=== PATIENT | male | born 1960 | race Caucasian/White ===

== ENCOUNTER 2019-09-15 13:07 | Emergency (ER) | payer SELFPAY ==
[~2019-09-15] VITALS: Ht 182.9 cm; Wt 270.0 kg
[2019-09-15] MEDS ORDERED: OXYcodone/APAP 10/325MG TABLET PO ONE (14:00)
[2019-09-15] MEDS ORDERED: DIAZEPAM 5 MG TABLET PO ONE (14:00)
[2019-09-15] MEDS ORDERED: KETOROLAC 30 MG/1 ML IVPush ONE (14:00)
[2019-09-15] MEDS ORDERED: KETOROLAC 30 MG/1 ML ONE (14:08)
[2019-09-15] MEDS ORDERED: OXYcodone/APAP 10/325MG TABLET ONE (14:08)
[2019-09-15] MEDS ORDERED: DIAZEPAM 5 MG TABLET ONE (14:08)
[2019-09-15] MEDS ORDERED: ONDANSETRON 2MG/ML, 2ML IVPush ONE (14:30)
[2019-09-15] MEDS ORDERED: MORPHINE SULFATE 4 MG/ML, 1ML IVPush ONE (14:30)
--- NOTE | 2019-09-15 14:32 | NUR ---
TASK RN: PT RESTING ON [facility]. MEDICATIONS ADMINISTERED PER ORDER FROM CALEB RUSSELL. NO OTHER NEEDS REQUESTED AT THIS TIME.
[2019-09-15] MEDS ORDERED: MORPHINE SULFATE 4 MG/ML, 1ML ONE (14:50)
[2019-09-15] MEDS ORDERED: ONDANSETRON 2MG/ML, 2ML ONE (14:50)
--- NOTE | 2019-09-15 14:56 | NUR ---
TASK RN: MEDICATIONS ADMINISTERED PER ORDER.
--- NOTE | 2019-09-15 14:59 | NUR ---
TASK RN: BEDSIDE REPORT TO CALEB RUSSELL.
[2019-09-15] MEDS ORDERED: ZIPRASIDONE 20 MG INJ IM ONE ×2 (15:57→16:00)
--- NOTE | 2019-09-15 16:11 | NUR ---
ATTEMPTED AMBULATION PT REPORTS TOO PAINFULL ERP AWARE MEDS GIVEN PER ORDERS
[2019-09-15] MEDS ORDERED: LABETALOL 5MG/ML, 20ML ONE (16:47)
--- NOTE | 2019-09-15 16:54 | NUR ---
BP HAS DROPPED HOLDING MEDS PER ERP
[2019-09-15] MEDS ORDERED: LABETALOL 5MG/ML, 20ML IVPush ONE (17:00)
--- NOTE | 2019-09-15 17:27 | NUR ---
PT REPORTS HE STILL IS UNABLE TO WALK ERP AWARE
[2019-09-15 18:15] VITALS: BP 127/98
== END 2019-09-15 18:47 | disposition home or self-care (01) ==
LOC: ED 16:23
DX: S39.012A Strain of muscle, fascia and tendon of lower back, initial encounter (principal); I10 Essential (primary) hypertension; F15.20 Other stimulant dependence, uncomplicated; F17.200 Nicotine dependence, unspecified, uncomplicated; X58.XXXA Exposure to other specified factors, initial encounter; Y93.89 Activity, other specified; Y92.89 Other specified places as the place of occurrence of the external cause; Y99.8 Other external cause status
CPT/HCPCS: 93005; 96372; 96374; 96375; 99285; J1885; J2270; J2405; J3486

== ENCOUNTER 2019-09-25 12:38 | Emergency (ER) | payer OTHER ==
[~2019-09-25] VITALS: Ht 182.9 cm; Wt 120.0 kg
--- NOTE | 2019-09-25 13:15 | NUR ---
PT AMBULATORY TO RME FROM TRIAGE WITH STEADY GAIT, NAD NOTED. RESP REGULAR AND UNLABORED. NEURO AND CMS INTACT. SONDRA LEOS AT BEDSIDE FOR EVALUATION, CALL LIGHT IN REACH. FALL PRECAUTIONS IN PLACE. 59 Y/O M REPORTS "LOW BACK PAIN GOES DOWN MY LEG, STARTED AFTER I HELPED SOMEONE LIFT A 3-WATKINS IN A TRUCK." A&OX4.
[2019-09-25] MEDS ORDERED: UNK BP MED PO (13:25)
[2019-09-25] MEDS ORDERED: KETOROLAC 30 MG/1 ML IM ONE (13:30)
[2019-09-25] MEDS ORDERED: CYCLOBENZAPRINE 10 MG TABLET PO ONE (13:30)
[2019-09-25] MEDS ORDERED: HYDROcodone/APAP 5/325 TABLET PO ONE (13:30)
[2019-09-25] MEDS ORDERED: ONDANSETRON ODT 8 MG PO ONE (13:30)
[2019-09-25] MEDS ORDERED: HYDROcodone/APAP 5/325 TABLET ONE (13:39)
[2019-09-25] MEDS ORDERED: CYCLOBENZAPRINE 10 MG TABLET ONE (13:39)
[2019-09-25] MEDS ORDERED: KETOROLAC 30 MG/1 ML ONE (13:39)
[2019-09-25] MEDS ORDERED: ONDANSETRON ODT 4 MG ONE (13:40)
[2019-09-25] MEDS ORDERED: ONDANSETRON ODT 8 MG ONE (13:42)
--- NOTE | 2019-09-25 13:50 | NUR ---
PT MEDICATED NOTED PER ORDER FOR 7/10 LOW BACK PAIN.
--- NOTE | 2019-09-25 14:20 | NUR ---
PT REPORTS PAIN IMPROVED, "WOW SO MUCH BETTER." RATES PAIN "MAYBE 2/10." PT UP FOR RECHECK
--- NOTE | 2019-09-25 14:42 | NUR ---
SONDRA LEOS AT BEDSIDE FOR RECHECK
[2019-09-25 14:55] VITALS: BP 132/88
== END 2019-09-25 14:58 | disposition home or self-care (01) ==
LOC: ED 14:52
DX: M54.42 Lumbago with sciatica, left side (principal); I10 Essential (primary) hypertension; F17.200 Nicotine dependence, unspecified, uncomplicated
CPT/HCPCS: 72110; 96372; 99284; J1885; Q0162

== ENCOUNTER 2020-05-10 11:12 | Inpatient (IN) | payer MEDICAID ==
[~2020-05-10] VITALS: Ht 182.9 cm; Wt 116.1 kg
[~2020-05-10 11:12] MED LIST: UNK BP MED PO
--- NOTE | 2020-05-10 11:22 | NUR ---
EKG IN TRIAGE
[2020-05-10] MEDS ORDERED: ASPIRIN 81 MG TABLET CHEW ONE (11:54)
[2020-05-10] MEDS ORDERED: METOPROLOL 1 MG/ML, 5ML ONE ×2 (11:54→13:03)
[2020-05-10] MEDS ORDERED: SODIUM CHLORIDE FLUSH 10ML SYR IVF ONE (12:00)
[2020-05-10] MEDS: METOPROLOL 1 MG/ML, 5ML IVPush PRN ×3 (12:00→13:13)
[2020-05-10] MEDS ORDERED: ASPIRIN 81 MG TABLET CHEW PO ONE ×2 (12:00→14:00)
[2020-05-10 12:22] LABS: BASOPHILS % (AUTO) 1 % (0-1); EOSINOPHILS % (AUTO) 2 % (1-7); LYMPHOCYTES % (AUTO) 16 % (22-44); MEAN CORPUSCULAR HEMOGLOBIN 32.6 pg (27.5-34.5); MEAN CORPUSCULAR HGB CONC 33.5 g/dL (33.2-36.2); MEAN PLATELET VOLUME 8.7 fL (7.4-10.4); MONOCYTES % (AUTO) 9 % (2-9); NEUTROPHILS % (AUTO) 73 % (42-75); PLATELET COUNT 273 x10^3/uL (130-400); RED CELL DISTRIBUTION WIDTH 16.1 % (9.4-14.8)
[2020-05-10 12:23] LABS: ALANINE AMINOTRANSFERASE 58 U/L (12-78); ALBUMIN 3.8 g/dL (3.4-5.0); ANION GAP 10 mmol/L (5-15); CHLORIDE 108 mmol/L (98-107); CREATININE 1.26 mg/dL (0.7-1.3)
[2020-05-10 12:26] LABS: MD NO
[2020-05-10 12:27] LABS: ALKALINE PHOSPHATASE 118 U/L (45-117); TOTAL PROTEIN 7.9 g/dL (6.4-8.2); TROPONIN I 0.082 ng/mL (0.000-0.045)
[2020-05-10] MEDS ORDERED: LABETALOL 5MG/ML, 20ML IVPush ONE (13:30)
[2020-05-10] MEDS ORDERED: MELATONIN 5 MG TABLET PO PRN (14:00)
[2020-05-10] MEDS ORDERED: DIPHENHYDRAMINE 25 MG CAPSULE PO PRN (14:00)
[2020-05-10] MEDS ORDERED: NITROGLYCERIN SINGLE TAB 0.4 MG SL PRN (14:00)
[2020-05-10] MEDS ORDERED: NITROGLYCERIN 0.4 MG BOTTLE (25 TABS) SL PRN (14:00)
[2020-05-10] MEDS ORDERED: DOCUSATE 100 MG CAPSULE PO PRN (14:00)
[2020-05-10] MEDS ORDERED: ASPIRIN 325 MG TABLET EC PO ONE (14:00)
[2020-05-10] MEDS ORDERED: ONDANSETRON ODT 4 MG PO PRN (14:00)
[2020-05-10] MEDS ORDERED: LABETALOL 5MG/ML, 20ML IVPush PRN (14:00)
[2020-05-10] MEDS ORDERED: LABETALOL 20 MG/4 ML IVPush ONE (14:00)
[2020-05-10] MEDS ORDERED: ONDANSETRON 2MG/ML, 2ML IVPush PRN (14:00)
[2020-05-10 14:38] LABS: CHOLESTEROL, TOTAL 293 mg/dL (140-239); TRIGLYCERIDES 674 mg/dL (50-200)
[2020-05-10 14:41] LABS: CHOL/HDL RATIO 4.8; HDL CHOL % 21 % (26-37); HDL CHOLESTEROL (DIRECT) 61 mg/dL (40-60); TROPONIN I 0.081 ng/mL (0.000-0.045)
[2020-05-10 14:45] VITALS: BP 172/131
[2020-05-10] MEDS: ENALAPRILAT 1.25 MG/ML, 2ML IVPush PRN (15:00)
[2020-05-10] MEDS ORDERED: ENALAPRILAT 1.25 MG/ML, 1ML ONE (15:06)
[2020-05-10] MEDS ORDERED: MIDAZOLAM 1 MG/ML, 5ML ONE (16:18)
[2020-05-10] MEDS ORDERED: BIVALIRUDIN 250 MG ONE ×2 (16:19→16:48)
[2020-05-10] MEDS ORDERED: HEPARIN 1,000 UNITS/ML, 10ML ONE (16:19)
[2020-05-10] MEDS ORDERED: LIDOCAINE-MPF 1%, 5ML ONE (16:19)
[2020-05-10] MEDS ORDERED: VERAPAMIL 2.5 MG/ML, 2ML ONE (16:19)
[2020-05-10] MEDS ORDERED: FENTANYL PF 100 MCG/2ML ONE (16:19)
[2020-05-10] MEDS ORDERED: TICAGRELOR 90 MG TABLET ONE (16:19)
[2020-05-10] MEDS ORDERED: NITROGLYCERIN 30 MCG/ML, 20ML VIAL ONE (16:47)
[2020-05-10] MEDS ORDERED: LISINOPRIL 5 MG TABLET ONE (17:46)
[2020-05-10] MEDS: ENOXAPARIN 40 MG/0.4 ML SQ SCH (17:54)
[2020-05-10] MEDS ORDERED: SODIUM CHLORIDE 0.9% 1,000 ML IV SCH (18:00)
[2020-05-10 18:31] LABS: TROPONIN I 0.081 ng/mL (0.000-0.045)
[2020-05-10] MEDS: ACETAMINOPHEN 325 MG TABLET PO PRN (18:44)
[2020-05-10 19:33] LABS: MICROSCOPIC NOT IND
[2020-05-10 19:45] LABS: AMPHETAMINE SCREEN, URINE Negative (Negative); BARBITURATE SCREEN, URINE Negative (Negative); BENZODIAZEPINE SCREEN, URINE Positive (Negative); CANNABINOID SCREEN, URINE Positive (Negative); COCAINE SCREEN, URINE Negative (Negative); METHADONE SCREEN, URINE Negative (Negative); OPIATE SCREEN, URINE Negative (Negative)
[2020-05-10 20:26] VITALS: BP 151/91
[2020-05-10] MEDS: SODIUM CHLORIDE FLUSH 10ML SYR IVF SCH (20:28)
[2020-05-10] MEDS: LISINOPRIL 5 MG TABLET PO SCH (20:28)
[2020-05-10] MEDS ORDERED: ATORVASTATIN 40 MG TABLET PO SCH (21:00)
[2020-05-10 21:55] LABS: TROPONIN I 0.075 ng/mL (0.000-0.045)
[2020-05-11] VITALS (7 sets, daily range): BP systolic 127–180; BP diastolic 79–111
[2020-05-11 02:17] LABS: ALBUMIN 3.3 g/dL (3.4-5.0); ANION GAP 6 mmol/L (5-15); CALCIUM 8.6 mg/dL (8.5-10.1); CHLORIDE 108 mmol/L (98-107)
[2020-05-11 02:21] LABS: ALANINE AMINOTRANSFERASE 54 U/L (12-78); ALKALINE PHOSPHATASE 103 U/L (45-117); CREATININE 1.05 mg/dL (0.7-1.3); TOTAL PROTEIN 7.2 g/dL (6.4-8.2)
[2020-05-11 02:32] LABS: TROPONIN I 0.115 ng/mL (0.000-0.045)
[2020-05-11] MEDS: ACETAMINOPHEN 325 MG TABLET PO PRN ×2 (05:29→09:39)
[2020-05-11] MEDS ORDERED: ASPIRIN 325 MG TABLET EC PO SCH (06:00)
[2020-05-11] MEDS ORDERED: METOPROLOL SUCCINATE 25 MG TAB.ER.24H PO SCH (06:00)
[2020-05-11] MEDS: LISINOPRIL 5 MG TABLET PO SCH (08:43)
[2020-05-11] MEDS: SODIUM CHLORIDE FLUSH 10ML SYR IVF SCH (08:44)
[2020-05-11] MEDS ORDERED: AMLODIPINE 2.5 MG TABLET PO SCH (09:00)
[2020-05-11] MEDS ORDERED: ENALAPRILAT 1.25 MG/ML, 1ML ONE ×2 (09:36→10:26)
[2020-05-11] MEDS: ENALAPRILAT 1.25 MG/ML, 2ML IVPush PRN (09:40)
[2020-05-11] MEDS ORDERED: FENOFIBRATE 145 MG TABLET PO SCH (10:30)
[2020-05-11] MEDS ORDERED: AMLO2.5T5 PO (12:39)
[2020-05-11] MEDS ORDERED: FENO145T19 PO (12:39)
[2020-05-11] MEDS ORDERED: METO25TA91 PO (12:39)
[2020-05-11] MEDS ORDERED: ATOR40TA78 PO (12:39)
[2020-05-11] MEDS ORDERED: LISI5TAB7 PO (12:39)
[2020-05-11] MEDS ORDERED: ASPI81TA45 PO (12:41)
[2020-05-11] MEDS: ENOXAPARIN 40 MG/0.4 ML SQ SCH (14:00)
== END 2020-05-11 15:50 | disposition home or self-care (01) | DRG 191 ==
LOC: ED 11:37 → 5SO 13:03 → DCLOUNGE 05-11 15:35
PROVIDERS: ADMIT Family Medicine; ATTEND Family Medicine
PROC: 4A023N7 Measurement of Cardiac Sampling and Pressure, Left Heart, Percutaneous Approach (ICD-10-PCS; principal; 2020-05-10)
PROC: B2111ZZ Fluoroscopy of Multiple Coronary Arteries using Low Osmolar Contrast (ICD-10-PCS; 2020-05-10)
PROC: B2151ZZ Fluoroscopy of Left Heart using Low Osmolar Contrast (ICD-10-PCS; 2020-05-10)
DX: I25.110 Atherosclerotic heart disease of native coronary artery with unstable angina pectoris (principal); E78.1 Pure hyperglyceridemia; E78.5 Hyperlipidemia, unspecified; F12.90 Cannabis use, unspecified, uncomplicated; F15.11 Other stimulant abuse, in remission; I10 Essential (primary) hypertension; I16.1 Hypertensive emergency; I70.0 Atherosclerosis of aorta; N17.9 Acute kidney failure, unspecified; Z79.899 Other long term (current) drug therapy; Z80.9 Family history of malignant neoplasm, unspecified; Z87.891 Personal history of nicotine dependence; Z88.0 Allergy status to penicillin; E66.01 Morbid (severe) obesity due to excess calories; Z68.34 Body mass index [BMI] 34.0-34.9, adult
CPT/HCPCS: 36415; 71045; 80053; 80061; 80307; 81003; 83735; 84484; 85025; 85379; 93005; 93306; 96374; 96375; 96376; 99291; G0378; J0583; J1644; J1650; J2250; J3010

== ENCOUNTER 2020-09-06 14:54 | Emergency (ER) | payer MEDICAID ==
[~2020-09-06] VITALS: Ht 180.3 cm; Wt 118.8 kg
[~2020-09-06 14:54] MED LIST changes: +AMLO2.5T5 PO; +ASPI81TA45 PO; +ATOR40TA78 PO; +FENO145T19 PO; +LISI5TAB7 PO; +METO25TA91 PO
[2020-09-06 14:59] VITALS: BP 144/91
[2020-09-06] MEDS ORDERED: BACITRACIN ZINC OINT 500U/GM, 0.9 GM ONE (15:22)
--- NOTE | 2020-09-06 15:32 | NUR ---
REGISTERED HEALTH NURSE: PT AMBULATORY TO ROOM FROM LOBBY WITH STEADY GAIT AT THIS TIME WITH [employer].
== END 2020-09-06 16:26 | disposition home or self-care (01) ==
LOC: ED 16:16
DX: K08.89 Other specified disorders of teeth and supporting structures (principal)
CPT/HCPCS: 99281

== ENCOUNTER 2020-09-21 09:44 | Emergency (ER) | payer MEDICAID ==
[~2020-09-21] VITALS: Ht 180.3 cm; Wt 117.1 kg
--- NOTE | 2020-09-21 10:29 | NUR ---
PT HAS CO ABDOMINAL PAIN THROUGHOUT AND DARK STOOL. DENIES EMESIS W BLOOD. HX OF HEMMORHOIDS BUT STATES THIS BLOOD IS DARK. HX OF HERNIA. PA AT BEDSIDE FOR RECTAL EXAM
[2020-09-21] MEDS ORDERED: MORPHINE SULFATE 4 MG/ML, 1ML ONE (10:55)
[2020-09-21] MEDS ORDERED: ONDANSETRON 2MG/ML, 2ML ONE (10:55)
[2020-09-21] MEDS ORDERED: MORPHINE SULFATE 4 MG/ML, 1ML IVPush PRN (11:00)
[2020-09-21] MEDS ORDERED: SODIUM CHLORIDE FLUSH 10ML SYR IVF ONE (11:00)
[2020-09-21] MEDS ORDERED: ONDANSETRON 2MG/ML, 2ML IVPush ONE (11:00)
[2020-09-21] MEDS ORDERED: SODIUM CHLORIDE 0.9% 1,000ML IVBOLUS ONE (11:00)
[2020-09-21 11:10] LABS: CHLORIDE 108 mmol/L (98-107)
[2020-09-21 11:11] LABS: BASOPHILS % (AUTO) 1 % (0-1); EOSINOPHILS % (AUTO) 0 % (1-7); LYMPHOCYTES % (AUTO) 8 % (22-44); MEAN CORPUSCULAR HEMOGLOBIN 32.9 pg (27.5-34.5); MEAN CORPUSCULAR HGB CONC 34.2 g/dL (33.2-36.2); MEAN PLATELET VOLUME 8.4 fL (7.4-10.4); MONOCYTES % (AUTO) 5 % (2-9); NEUTROPHILS % (AUTO) 86 % (42-75); PLATELET COUNT 341 x10^3/uL (130-400); RED BLOOD COUNT 4.77 x10^6/uL (4.38-5.82); RED CELL DISTRIBUTION WIDTH 13.1 % (9.4-14.8)
[2020-09-21 11:15] LABS: ALANINE AMINOTRANSFERASE 34 U/L (12-78); ALKALINE PHOSPHATASE 66 U/L (45-117); ANION GAP 5 mmol/L (5-15); BILIRUBIN,TOTAL 0.5 mg/dL (0.2-1.0); CALCIUM 9.8 mg/dL (8.5-10.1); CREATININE 1.35 mg/dL (0.7-1.3)
[2020-09-21 11:25] LABS: MD SCAN
[2020-09-21] MEDS ORDERED: OMNIPAQUE 350 MG/ML, 100ML BOTTLE ONE (11:30)
--- NOTE | 2020-09-21 11:35 | NUR ---
PT IN CT.
--- NOTE | 2020-09-21 12:06 | NUR ---
PT RESTING, DENIES PAIN. UA SENT. VSS
[2020-09-21 12:18] LABS: MICROSCOPIC NOT IND
--- NOTE | 2020-09-21 13:17 | NUR ---
Patient given discharge instructions and they have confirmed that they understand the instructions. Patient ambulatory with steady gait.
[2020-09-21 13:19] VITALS: BP 142/81
== END 2020-09-21 13:22 | disposition home or self-care (01) ==
LOC: ED 10:48
DX: A09 Infectious gastroenteritis and colitis, unspecified (principal); R10.9 Unspecified abdominal pain; R11.2 Nausea with vomiting, unspecified; I10 Essential (primary) hypertension
CPT/HCPCS: 36415; 74177; 80053; 81003; 83690; 85025; 96361; 96374; 96375; 99285; J2270; J2405; J7030; Q9967

== ENCOUNTER 2021-02-22 15:32 | Emergency (ER) | payer MEDICAID ==
[~2021-02-22] VITALS: Ht 180.3 cm; Wt 118.0 kg
[2021-02-22 16:53] LABS: BASOPHILS % (AUTO) 1 % (0-1); EOSINOPHILS % (AUTO) 3 % (1-7); LYMPHOCYTES % (AUTO) 19 % (22-44); MEAN CORPUSCULAR HEMOGLOBIN 33.7 pg (27.5-34.5); MEAN CORPUSCULAR HGB CONC 34.3 g/dL (33.2-36.2); MEAN PLATELET VOLUME 7.6 fL (7.4-10.4); MONOCYTES % (AUTO) 10 % (2-9); NEUTROPHILS % (AUTO) 67 % (42-75); PLATELET COUNT 311 x10^3/uL (130-400); RED BLOOD COUNT 4.44 x10^6/uL (4.38-5.82); RED CELL DISTRIBUTION WIDTH 13.9 % (9.4-14.8)
[2021-02-22 17:07] LABS: ALANINE AMINOTRANSFERASE 30 U/L (12-78); ALBUMIN 3.7 g/dL (3.4-5.0); ANION GAP 11 mmol/L (5-15); CALCIUM 9.6 mg/dL (8.5-10.1); CHLORIDE 111 mmol/L (98-107); CREATININE 2.04 mg/dL (0.7-1.3)
[2021-02-22 17:09] LABS: ALKALINE PHOSPHATASE 58 U/L (45-117); BILIRUBIN,TOTAL 0.4 mg/dL (0.2-1.0)
--- NOTE | 2021-02-22 20:50 | NUR ---
PT BACK TO ROOM
[2021-02-22] MEDS ORDERED: HYDROcodone/APAP 5/325 TABLET PO ONE (21:30)
[2021-02-22] MEDS ORDERED: FAMOTIDINE 20 MG TABLET PO ONE (21:30)
[2021-02-22] MEDS ORDERED: ONDANSETRON ODT 4 MG PO ONE (21:30)
[2021-02-22] MEDS ORDERED: FAMOTIDINE 20 MG TABLET ONE (21:35)
[2021-02-22] MEDS ORDERED: ONDANSETRON ODT 4 MG ONE (21:35)
[2021-02-22] MEDS ORDERED: HYDROcodone/APAP 5/325 TABLET ONE (21:36)
[2021-02-22 21:44] VITALS: BP 144/81
[2021-02-22 21:46] LABS: MICROSCOPIC NOT IND
--- NOTE | 2021-02-22 21:56 | NUR ---
PT MEDICATED PER EMAR AFTER RETURNING FROM CT. VSS AND WILL CONT TO MONITOR.
== END 2021-02-22 23:28 | disposition home or self-care (01) ==
LOC: ED 23:00
DX: R10.84 Generalized abdominal pain (principal); K74.60 Unspecified cirrhosis of liver; K57.90 Diverticulosis of intestine, part unspecified, without perforation or abscess without bleeding; R19.7 Diarrhea, unspecified; R11.0 Nausea; I10 Essential (primary) hypertension; E78.00 Pure hypercholesterolemia, unspecified
CPT/HCPCS: 36415; 74022; 74176; 80053; 81003; 83690; 85025; 99285; Q0162